=== PATIENT | male | born 1930 | race Caucasian/White ===

== ENCOUNTER 2016-07-06 11:57 | Inpatient (IN) | payer MEDICAID, MEDICARE ==
[~2016-07-06] VITALS: Ht 167.6 cm; Wt 78.0 kg
[2016-07-06] MEDS ORDERED: TAMS0.4C32 PO (12:25)
[2016-07-06] MEDS ORDERED: DONE10TA PO (12:25)
[2016-07-06] MEDS ORDERED: QUET25TA PO (12:25)
[2016-07-06] MEDS ORDERED: SIMV-260 PO (12:25)
[2016-07-06] MEDS ORDERED: MEMA5 PO (12:25)
[2016-07-06] MEDS ORDERED: LISI-660 PO (12:25)
[2016-07-06] MEDS ORDERED: CARB-104 PO (12:25)
[2016-07-06] MEDS ORDERED: CARV3 PO (12:25)
[2016-07-06] MEDS ORDERED: FINA5TAB41 PO (12:25)
[2016-07-06] MEDS ORDERED: MIRT30 PO (12:25)
[2016-07-06] MEDS ORDERED: ACETAMINOPHEN 325 MG TABLET PO ONE (12:45)
[2016-07-06] MEDS ORDERED: ACETAMINOPHEN 500 MG TABLET PO ONE (13:00)
[2016-07-06 14:46] LABS: BASOPHILS # (AUTO) 0.06 K/uL (0.00-0.20); BASOPHILS % (AUTO) 0.7 % (0.0-2.0); EOSINOPHILS # (AUTO) 0.42 K/uL (0.00-0.70); EOSINOPHILS % (AUTO) 4.95 % (1.0-6.0); HEMATOCRIT 43.9 % (41-53); HEMOGLOBIN 14.6 g/dL (13.5-17.5); LYMPHOCYTES # (AUTO) 1.8 K/uL (1.0-4.8); LYMPHOCYTES % (AUTO) 20.4 % (22.0-44.0); MEAN CORPUSCULAR HEMOGLOBIN 31.6 pg (26.0-34.0); MEAN CORPUSCULAR HGB CONC 33.1 G/dL (31.0-37.0); MEAN CORPUSCULAR VOLUME 95 fL (80-100); MONOCYTES # (AUTO) 0.6 K/uL (0.1-1.0); MONOCYTES % (AUTO) 6.7 % (2.0-9.0); NEUTROPHILS # (AUTO) 5.7 K/uL (1.8-7.7); NEUTROPHILS % (AUTO) 67.2 % (40.0-70.0); PLATELET COUNT (AUTO) 249 K/uL (150-450); RED BLOOD CELL COUNT(AUTO) 4.61 MIL/uL (4.50-5.90); RED CELL DISTRIBUTION WIDTH 13.2 % (11.5-14.5); WHITE BLOOD COUNT (AUTO) 8.6 K/uL (4.5-11.0)
[2016-07-06 14:53] LABS: ANION GAP 8 mmol/L (8-16); CALCIUM, TOTAL 9.4 mg/dL (8.8-10.5); CARBON DIOXIDE 27 mmol/L (22-29); CHLORIDE 108 mmol/L (98-107); CREATININE 1.12 mg/dL (0.60-1.30); GLOMERULAR FILTR. RATE CALC > 60 mL/min (>60); POTASSIUM 3.9 mmol/L (3.5-5.1); SODIUM SERUM 143 mmol/L (136-145); UREA NITROGEN, BLOOD 17 mg/dL (7-18)
[2016-07-06 15:01] LABS: ALANINE AMINOTRANSFERASE 9 U/L (12-78); ALBUMIN 3.2 g/dL (3.4-5.0); ASPARTATE AMINOTRANSFERASE 22 U/L (15-37); BILIRUBIN,TOTAL 0.6 mg/dL (0.1-1.0); TOTAL PROTEIN, SERUM 6.8 g/dL (6.4-8.2)
[2016-07-06] MEDS ORDERED: ACETAMINOPHEN 325 MG TABLET PO PRN (15:30)
[2016-07-06] MEDS ORDERED: ONDANSETRON HCL 4 MG/2 ML VIAL IVP PRN (15:30)
[2016-07-06 17:07] VITALS: BP 189/94
[2016-07-06 20:18] VITALS: BP 140/73
[2016-07-06] MEDS ORDERED: BISACODYL 10 MG RECTAL RECTAL SUPPOSITORY PR PRN (20:30)
[2016-07-06] MEDS: MEMANTINE HCL 5 MG TABLET PO SCH (21:45)
[2016-07-06] MEDS: TAMSULOSIN HCL 0.4 MG CAPSULE PO SCH (21:45)
[2016-07-06] MEDS: DOCUSATE SODIUM 100 MG CAPSULE PO SCH (21:45)
[2016-07-06] MEDS: SIMVASTATIN 20 MG TABLET PO SCH (21:46)
[2016-07-06] MEDS: ENTACAPONE PO SCH (21:46)
[2016-07-06] MEDS: CARBIDOPA PO SCH (21:46)
[2016-07-06] MEDS: LEVODOPA PO SCH (21:46)
[2016-07-06 22:09] VITALS: BP 132/74
[2016-07-06] MEDS: HEPARIN SODIUM,PORCINE 5,000 UNITS/ML VIAL SQ SCH (23:37)
[2016-07-07] VITALS (9 sets, daily range): BP systolic 138–179; BP diastolic 64–92
[2016-07-07] MEDS ORDERED: 0.9% SODIUM CHLORIDE 10 ML SYRINGE IVP PRN (01:30)
[2016-07-07] MEDS: MAGNESIUM HYDROXIDE SUSPENSION 30 ML UDCUP PO PRN ×2 (05:09→17:53)
[2016-07-07] MEDS: ENALAPRILAT DIHYDRATE 1.25 MG/ML VIAL IVP PRN ×3 (07:16→17:51)
[2016-07-07] MEDS: HEPARIN SODIUM,PORCINE 5,000 UNITS/ML VIAL SQ SCH ×3 (07:27→23:26)
[2016-07-07] MEDS: PANTOPRAZOLE SODIUM 40 MG DR TABLET PO SCH ×2 (08:46→09:00)
[2016-07-07] MEDS: DOCUSATE SODIUM 100 MG CAPSULE PO SCH ×2 (08:46→20:26)
[2016-07-07] MEDS: MEMANTINE HCL 5 MG TABLET PO SCH ×2 (08:46→20:26)
[2016-07-07] MEDS: ASPIRIN 81 MG CHEWABLE TABLET PO SCH ×4 (08:46→16:51)
[2016-07-07] MEDS: AmLODIPine BESYLATE 10 MG TABLET PO SCH ×4 (08:46→16:51)
[2016-07-07] MEDS: CARBIDOPA PO SCH ×2 (08:47→23:25)
[2016-07-07] MEDS: LEVODOPA PO SCH ×2 (08:47→23:25)
[2016-07-07] MEDS: ENTACAPONE PO SCH ×2 (08:47→23:25)
[2016-07-07] MEDS: MULTIVITAMINS WITH MINERALS, THERAPEUTIC TABLET PO SCH ×2 (08:50→09:00)
[2016-07-07] MEDS: LOSARTAN POTASSIUM 25 MG TABLET PO SCH ×4 (09:30→23:26)
[2016-07-07] MEDS: CloNIDine HCL 0.1 MG TABLET PO SCH ×2 (16:33→23:25)
[2016-07-07] MEDS: SIMVASTATIN 20 MG TABLET PO SCH (20:26)
[2016-07-07] MEDS: TAMSULOSIN HCL 0.4 MG CAPSULE PO SCH (20:26)
[2016-07-08 04:32] VITALS: BP 121/78
[2016-07-08] MEDS: PANTOPRAZOLE SODIUM 40 MG DR TABLET PO SCH (08:24)
[2016-07-08] MEDS: DOCUSATE SODIUM 100 MG CAPSULE PO SCH ×2 (08:24→19:59)
[2016-07-08] MEDS: ASPIRIN 81 MG CHEWABLE TABLET PO SCH (08:24)
[2016-07-08] MEDS: CloNIDine HCL 0.1 MG TABLET PO SCH ×3 (08:24→23:50)
[2016-07-08] MEDS: AmLODIPine BESYLATE 10 MG TABLET PO SCH (08:24)
[2016-07-08] MEDS: LOSARTAN POTASSIUM 25 MG TABLET PO SCH ×2 (08:24→19:59)
[2016-07-08] MEDS: MULTIVITAMINS WITH MINERALS, THERAPEUTIC TABLET PO SCH (08:24)
[2016-07-08] MEDS: HEPARIN SODIUM,PORCINE 5,000 UNITS/ML VIAL SQ SCH ×3 (08:25→23:50)
[2016-07-08] MEDS: LEVODOPA PO SCH ×2 (08:27→19:59)
[2016-07-08] MEDS: MEMANTINE HCL 5 MG TABLET PO SCH ×2 (08:27→19:58)
[2016-07-08] MEDS: CARBIDOPA PO SCH ×2 (08:27→19:59)
[2016-07-08] MEDS: ENTACAPONE PO SCH ×2 (08:27→19:59)
[2016-07-08 08:28] VITALS: BP 149/80
[2016-07-08 11:04] VITALS: BP 130/67
[2016-07-08 16:23] VITALS: BP 127/65
[2016-07-08 19:50] VITALS: BP 161/73
[2016-07-08] MEDS: SIMVASTATIN 20 MG TABLET PO SCH (19:59)
[2016-07-08] MEDS: TAMSULOSIN HCL 0.4 MG CAPSULE PO SCH (19:59)
[2016-07-08 23:21] VITALS: BP 117/72
[2016-07-09 03:42] VITALS: BP 161/75
[2016-07-09 08:09] VITALS: BP 146/88
[2016-07-09] MEDS: MEMANTINE HCL 5 MG TABLET PO SCH ×2 (08:25→21:18)
[2016-07-09] MEDS: PANTOPRAZOLE SODIUM 40 MG DR TABLET PO SCH (08:25)
[2016-07-09] MEDS: HEPARIN SODIUM,PORCINE 5,000 UNITS/ML VIAL SQ SCH ×2 (08:25→16:20)
[2016-07-09] MEDS: LOSARTAN POTASSIUM 25 MG TABLET PO SCH ×2 (08:25→21:00)
[2016-07-09] MEDS: DOCUSATE SODIUM 100 MG CAPSULE PO SCH ×2 (08:26→21:00)
[2016-07-09] MEDS: CloNIDine HCL 0.1 MG TABLET PO SCH ×2 (08:26→16:20)
[2016-07-09] MEDS: CARBIDOPA PO SCH ×2 (08:26→21:18)
[2016-07-09] MEDS: LEVODOPA PO SCH ×2 (08:26→21:18)
[2016-07-09] MEDS: AmLODIPine BESYLATE 10 MG TABLET PO SCH (08:26)
[2016-07-09] MEDS: ASPIRIN 81 MG CHEWABLE TABLET PO SCH (08:26)
[2016-07-09] MEDS: MULTIVITAMINS WITH MINERALS, THERAPEUTIC TABLET PO SCH (08:26)
[2016-07-09] MEDS: ENTACAPONE PO SCH ×2 (08:26→21:18)
[2016-07-09 12:10] VITALS: BP 158/70
[2016-07-09 15:15] VITALS: BP 150/70
[2016-07-09 20:19] VITALS: BP 148/69
[2016-07-09] MEDS: SIMVASTATIN 20 MG TABLET PO SCH (21:18)
[2016-07-09] MEDS: TAMSULOSIN HCL 0.4 MG CAPSULE PO SCH (21:18)
[2016-07-09 23:07] VITALS: BP 150/73
[2016-07-10] MEDS: HEPARIN SODIUM,PORCINE 5,000 UNITS/ML VIAL SQ SCH ×3 (01:12→16:25)
[2016-07-10] MEDS: CloNIDine HCL 0.1 MG TABLET PO SCH ×3 (01:14→16:25)
[2016-07-10 03:11] VITALS: BP 148/69
[2016-07-10 07:33] VITALS: BP 152/62
[2016-07-10] MEDS: LEVODOPA PO SCH ×2 (07:43→21:45)
[2016-07-10] MEDS: ENTACAPONE PO SCH ×2 (07:43→21:45)
[2016-07-10] MEDS: CARBIDOPA PO SCH ×2 (07:43→21:45)
[2016-07-10] MEDS: ASPIRIN 81 MG CHEWABLE TABLET PO SCH (07:44)
[2016-07-10] MEDS: PANTOPRAZOLE SODIUM 40 MG DR TABLET PO SCH (07:44)
[2016-07-10] MEDS: DOCUSATE SODIUM 100 MG CAPSULE PO SCH ×2 (07:44→21:45)
[2016-07-10] MEDS: MEMANTINE HCL 5 MG TABLET PO SCH ×2 (07:44→21:45)
[2016-07-10] MEDS: MULTIVITAMINS WITH MINERALS, THERAPEUTIC TABLET PO SCH (07:44)
[2016-07-10] MEDS: AmLODIPine BESYLATE 10 MG TABLET PO SCH (07:45)
[2016-07-10] MEDS: LOSARTAN POTASSIUM 25 MG TABLET PO SCH ×2 (07:45→21:45)
[2016-07-10 11:34] VITALS: BP 129/67
[2016-07-10 16:00] VITALS: BP 164/76
[2016-07-10 19:36] VITALS: BP 154/85
[2016-07-10] MEDS: TAMSULOSIN HCL 0.4 MG CAPSULE PO SCH (21:45)
[2016-07-10] MEDS: SIMVASTATIN 20 MG TABLET PO SCH (21:45)
[2016-07-10] MEDS: ACETAMINOPHEN 325 MG TABLET PO PRN (21:46)
[2016-07-10 23:32] VITALS: BP 152/78
[2016-07-11] MEDS: HEPARIN SODIUM,PORCINE 5,000 UNITS/ML VIAL SQ SCH ×3 (00:50→16:02)
[2016-07-11] MEDS: CloNIDine HCL 0.1 MG TABLET PO SCH ×3 (00:51→16:02)
[2016-07-11] MEDS: AmLODIPine BESYLATE 10 MG TABLET PO SCH (07:41)
[2016-07-11] MEDS: MEMANTINE HCL 5 MG TABLET PO SCH ×2 (07:41→20:39)
[2016-07-11] MEDS: ACETAMINOPHEN 325 MG TABLET PO PRN (07:41)
[2016-07-11] MEDS: LEVODOPA PO SCH ×2 (07:41→20:39)
[2016-07-11] MEDS: DOCUSATE SODIUM 100 MG CAPSULE PO SCH ×2 (07:41→20:39)
[2016-07-11] MEDS: CARBIDOPA PO SCH ×2 (07:41→20:39)
[2016-07-11] MEDS: ENTACAPONE PO SCH ×2 (07:41→20:39)
[2016-07-11] MEDS: LOSARTAN POTASSIUM 25 MG TABLET PO SCH ×2 (07:42→20:39)
[2016-07-11] MEDS: PANTOPRAZOLE SODIUM 40 MG DR TABLET PO SCH (07:42)
[2016-07-11] MEDS: MULTIVITAMINS WITH MINERALS, THERAPEUTIC TABLET PO SCH (07:42)
[2016-07-11] MEDS: ASPIRIN 81 MG CHEWABLE TABLET PO SCH (07:43)
[2016-07-11 08:09] VITALS: BP 148/75
[2016-07-11 09:05] LABS: BASOPHILS # (AUTO) 0.03 K/uL (0.00-0.20); BASOPHILS % (AUTO) 0.5 % (0.0-2.0); EOSINOPHILS # (AUTO) 0.35 K/uL (0.00-0.70); EOSINOPHILS % (AUTO) 6.12 % (1.0-6.0); HEMATOCRIT 45.2 % (41-53); HEMOGLOBIN 14.7 g/dL (13.5-17.5); LYMPHOCYTES # (AUTO) 1.2 K/uL (1.0-4.8); LYMPHOCYTES % (AUTO) 20.1 % (22.0-44.0); MEAN CORPUSCULAR HEMOGLOBIN 31.1 pg (26.0-34.0); MEAN CORPUSCULAR HGB CONC 32.6 G/dL (31.0-37.0); MEAN CORPUSCULAR VOLUME 95 fL (80-100); MONOCYTES # (AUTO) 0.4 K/uL (0.1-1.0); MONOCYTES % (AUTO) 6.3 % (2.0-9.0); NEUTROPHILS # (AUTO) 3.8 K/uL (1.8-7.7); PLATELET COUNT (AUTO) 282 K/uL (150-450); RED BLOOD CELL COUNT(AUTO) 4.74 MIL/uL (4.50-5.90); RED CELL DISTRIBUTION WIDTH 13.1 % (11.5-14.5); WHITE BLOOD COUNT (AUTO) 5.7 K/uL (4.5-11.0)
[2016-07-11 09:15] LABS: CALCIUM, TOTAL 9.6 mg/dL (8.8-10.5); CREATININE 1.2 mg/dL (0.60-1.30); POTASSIUM 3.5 mmol/L (3.5-5.1)
[2016-07-11 11:40] VITALS: BP 122/61
[2016-07-11 15:57] VITALS: BP 145/80
[2016-07-11 19:43] VITALS: BP 134/74
[2016-07-11] MEDS: SIMVASTATIN 20 MG TABLET PO SCH (20:39)
[2016-07-11] MEDS: TAMSULOSIN HCL 0.4 MG CAPSULE PO SCH (20:39)
[2016-07-11 23:46] VITALS: BP 165/79
[2016-07-12] MEDS: HEPARIN SODIUM,PORCINE 5,000 UNITS/ML VIAL SQ SCH ×3 (00:43→15:19)
[2016-07-12] MEDS: CloNIDine HCL 0.1 MG TABLET PO SCH ×3 (00:43→15:19)
[2016-07-12 04:35] VITALS: BP 144/76
[2016-07-12 07:59] VITALS: BP 148/77
[2016-07-12] MEDS: ENTACAPONE PO SCH ×2 (08:55→20:26)
[2016-07-12] MEDS: MULTIVITAMINS WITH MINERALS, THERAPEUTIC TABLET PO SCH (08:55)
[2016-07-12] MEDS: DOCUSATE SODIUM 100 MG CAPSULE PO SCH ×2 (08:55→20:26)
[2016-07-12] MEDS: CARBIDOPA PO SCH ×2 (08:55→20:26)
[2016-07-12] MEDS: PANTOPRAZOLE SODIUM 40 MG DR TABLET PO SCH (08:55)
[2016-07-12] MEDS: ASPIRIN 81 MG CHEWABLE TABLET PO SCH (08:55)
[2016-07-12] MEDS: MEMANTINE HCL 5 MG TABLET PO SCH ×2 (08:55→20:26)
[2016-07-12] MEDS: AmLODIPine BESYLATE 10 MG TABLET PO SCH (08:55)
[2016-07-12] MEDS: LEVODOPA PO SCH ×2 (08:55→20:26)
[2016-07-12] MEDS: LOSARTAN POTASSIUM 25 MG TABLET PO SCH ×2 (08:55→20:26)
[2016-07-12 11:12] VITALS: BP 157/79
[2016-07-12 15:33] VITALS: BP 104/60
[2016-07-12 20:00] VITALS: BP 138/76
[2016-07-12] MEDS: TAMSULOSIN HCL 0.4 MG CAPSULE PO SCH (20:26)
[2016-07-12] MEDS: SIMVASTATIN 20 MG TABLET PO SCH (20:26)
[2016-07-12 23:47] VITALS: BP 128/74
[2016-07-13] MEDS: HEPARIN SODIUM,PORCINE 5,000 UNITS/ML VIAL SQ SCH ×3 (01:15→16:34)
[2016-07-13] MEDS: CloNIDine HCL 0.1 MG TABLET PO SCH ×3 (01:15→16:34)
[2016-07-13 04:40] VITALS: BP 156/74
[2016-07-13 07:39] VITALS: BP 155/77
[2016-07-13] MEDS: ENTACAPONE PO SCH (09:25)
[2016-07-13] MEDS: MULTIVITAMINS WITH MINERALS, THERAPEUTIC TABLET PO SCH (09:25)
[2016-07-13] MEDS: PANTOPRAZOLE SODIUM 40 MG DR TABLET PO SCH (09:25)
[2016-07-13] MEDS: DOCUSATE SODIUM 100 MG CAPSULE PO SCH (09:25)
[2016-07-13] MEDS: LEVODOPA PO SCH (09:25)
[2016-07-13] MEDS: ASPIRIN 81 MG CHEWABLE TABLET PO SCH (09:25)
[2016-07-13] MEDS: CARBIDOPA PO SCH (09:25)
[2016-07-13] MEDS: MEMANTINE HCL 5 MG TABLET PO SCH (09:25)
[2016-07-13] MEDS: AmLODIPine BESYLATE 10 MG TABLET PO SCH (09:25)
[2016-07-13] MEDS: LOSARTAN POTASSIUM 25 MG TABLET PO SCH (09:26)
[2016-07-13 11:40] VITALS: BP 91/55
[2016-07-13 15:40] VITALS: BP 148/79
[2016-07-13] MEDS ORDERED: ASPI-1093 PO (17:05)
[2016-07-13] MEDS ORDERED: AMLO-512 PO (17:08)
[2016-07-13] MEDS ORDERED: DSS100 PO (17:10)
[2016-07-13] MEDS ORDERED: CLON.1 PO (17:10)
[2016-07-13] MEDS ORDERED: HEPA500017 SQ (17:12)
[2016-07-13] MEDS ORDERED: LOSA25TA21 PO (17:13)
[2016-07-13] MEDS ORDERED: PANT40TA25 PO (17:15)
[2016-07-13] MEDS ORDERED: MULT-1279 PO (17:15)
[2016-07-13] MEDS ORDERED: ACET-2902 PO (17:17)
[2016-07-13] MEDS ORDERED: BISA5TAB12 PO (17:18)
[2016-07-13] MEDS ORDERED: BISA10S PR (17:19)
[2016-07-13] MEDS ORDERED: MOM30 PO (17:20)
== END 2016-07-13 18:50 | DRG 305 ==
LOC: EMS 12:03 → 6N 15:42
PROVIDERS: ADMIT Internal Medicine; ATTEND Internal Medicine
DX: I10 Essential (primary) hypertension (principal); G20 Parkinson's disease; F01.50 Vascular dementia, unspecified severity, without behavioral disturbance, psychotic disturbance, mood disturbance, and anxiety; I25.10 Atherosclerotic heart disease of native coronary artery without angina pectoris; N40.0 Benign prostatic hyperplasia without lower urinary tract symptoms; R62.7 Adult failure to thrive; R29.6 Repeated falls; Z86.73 Personal history of transient ischemic attack (TIA), and cerebral infarction without residual deficits; Z95.5 Presence of coronary angioplasty implant and graft; Z74.01 Bed confinement status; Z79.82 Long term (current) use of aspirin; Z79.899 Other long term (current) drug therapy; Z79.01 Long term (current) use of anticoagulants
CPT/HCPCS: 70450; 72125; 82306; 93005; 97110; 97162; 97530; 99285; J1644; J3490